=== PATIENT | male | born 1995 | race Two or more races ===

== ENCOUNTER 2017-01-16 03:19 | Emergency (ER) | payer BC, OTHER ==
[~2017-01-16] VITALS: Ht 162.6 cm; Wt 74.8 kg
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
[2017-01-16] MEDS ORDERED: HYDROCODONE/APAP 5-325MG TABLET PO ONE (03:45)
[2017-01-16] MEDS ORDERED: HYDROCODONE/APAP 5-325MG TABLET ONE (03:54)
[2017-01-16] MEDS ORDERED: diphenhydrAMINE 50 MG/1 ML VIAL IM ONE (04:15)
[2017-01-16] MEDS ORDERED: HYDROMORPHONE 1 MG/1 ML DISP.SYRIN IM ONE (04:15)
[2017-01-16] MEDS ORDERED: HYDROMORPHONE 1 MG/1 ML DISP.SYRIN ONE (04:24)
[2017-01-16] MEDS ORDERED: diphenhydrAMINE 50 MG/1 ML VIAL ONE (04:29)
[2017-01-16 05:35] VITALS: BP 129/74
--- NOTE | 2017-01-16 05:40 | NUR ---
Patient discharged to home in stable conditon. Written and verbal after care instructions given. Patient verbalizes understanding of instructions.
== END 2017-01-16 05:40 | disposition home or self-care (01) ==
LOC: ER 03:22
DX: S62.305A Unspecified fracture of fourth metacarpal bone, left hand, initial encounter for closed fracture (principal); S06.0X0A Concussion without loss of consciousness, initial encounter; S52.121A Displaced fracture of head of right radius, initial encounter for closed fracture; S62.600A Fracture of unspecified phalanx of right index finger, initial encounter for closed fracture; V89.2XXA Person injured in unspecified motor-vehicle accident, traffic, initial encounter; R51 Headache; W22.10XA Striking against or struck by unspecified automobile airbag, initial encounter; Y93.89 Activity, other specified; Y99.8 Other external cause status; Y92.89 Other specified places as the place of occurrence of the external cause
CPT/HCPCS: 70450; 72125; 73080; 73130; A4663; J1170; J1200

== ENCOUNTER 2021-04-13 01:50 | Emergency (ER) | payer SELFPAY ==
[~2021-04-13] VITALS: Ht 162.6 cm; Wt 68.9 kg
--- NOTE | 2021-04-13 02:03 | NUR ---
Dr. Galaviz at bedside for MSE.
--- NOTE | 2021-04-13 02:06 | NUR ---
Xray at bedside.
--- NOTE | 2021-04-13 02:07 | NUR ---
PORTABLE CHEST XRAY DONE BY TECH AT B/S.
--- NOTE | 2021-04-13 03:15 | NUR ---
: CARMEN SPOKED WITH PATIENT AND WITH ORDERS TO DISCHARGE PATIENT ,CHEST XRAY IS NORMAL .
--- NOTE | 2021-04-13 03:16 | NUR ---
Patient discharged to home in stable condition. Written and verbal after care instructions given. Patient verbalizes understanding of instructions.WENT HOME WITH STEADY GAIT ABLE TO AMBULATE WITH ALL HIS BELONGINGS . Stressed follow up or return to ER for worsening s/s.
[2021-04-13 03:17] VITALS: BP 105/75
== END 2021-04-13 03:18 | disposition home or self-care (01) ==
LOC: ER 01:52
DX: Z03.89 Encounter for observation for other suspected diseases and conditions ruled out (principal)
CPT/HCPCS: 71045; A4663